=== PATIENT | female | born 1940 | race Caucasian/White ===

== ENCOUNTER → 2021-04-25 | Outpatient (CLI) | payer MEDICARE, OTHER ==
--- NOTE | 2021-04-27 11:01 | RAD ---
DATE: 04/25/2021 EXAM: MAMMO [place] SCREENING BILATERAL HISTORY: Screening COMPARISON: None. Baseline exam. This study was interpreted with the benefit of Computerized Aided Detection (CAD). Breast Density: SCATTERED The breast parenchyma shows scattered fibroglandular densities. Breast parenchyma level B. FINDINGS: No mass, suspicious calcification, or architectural distortion in either breast. IMPRESSION: No evidence of malignancy. BI-RADS CATEGORY: 1 NEGATIVE RECOMMENDED FOLLOW-UP: 12M 12 MONTH FOLLOW-UP PQRS compliance statement: Patient information was entered into a reminder system with a target due date for the next mammogram. Mammography is a sensitive method for finding small breast cancers, but it does not detect them all and is not a substitute for careful clinical examination. A negative mammogram does not negate a clinically suspicious finding and should not result in delay in biopsying a clinically suspicious abnormality. "Our facility is accredited by the [employer] Mammography Program."
== END ==
LOC: MAMMO 10:14
PROVIDERS: ATTEND Family Medicine
DX: Z12.31 Encounter for screening mammogram for malignant neoplasm of breast (principal)
CPT/HCPCS: 77063; 77067

== ENCOUNTER → 2021-05-16 | Outpatient (CLI) | payer MEDICARE, OTHER ==
--- NOTE | 2021-05-16 17:07 | RAD ---
EXAM: Frontal pelvis with bilateral two-view hip. HISTORY: Bilateral hip pain. COMPARISON: None. FINDINGS: Osteopenia is at least mild. No fractures are identified within the pelvis or either hip. T here is mild superior joint space narrowing at the right greater than left hips. There are moderate d egenerative changes of the lower lumbar spine. There are mild degenerative changes at the sacroiliac joints and pubic symphysis for patient age. A compression deformity is suspected at L5. IMPRESSION: 1. Mild hip osteoarthritis on the right greater than left. 2. Suspect an age-indeterminate compression deformity at L5. Electronically signed by: Emely Dickens MD (05/16/2021 5:05 PM) [id number]
== END ==
LOC: RAD 15:26
PROVIDERS: ATTEND Family Medicine
DX: M16.0 Bilateral primary osteoarthritis of hip (principal)
CPT/HCPCS: 73521

== ENCOUNTER → 2021-05-18 | Outpatient (CLI) | payer MEDICARE, OTHER ==
--- NOTE | 2021-05-18 16:25 | RAD ---
EXAM: XR LUMBAR SPINE 2-3V 05/18/2021 1:43 PM CLINICAL INDICATION: Wedge compression fracture of the lumbar spine COMPARISON: None TECHNIQUE: AP, lateral, and coned-down lateral views of the lumbar spine FINDINGS: For the purpose of this report, a numbering system with 5 nonrib-bearing lumbar vertebral bodies and partial lumbarization of S1 is used. There is an inferiorly compression fracture of L5 wit h 30 percent vertebral body height loss. No obvious retropulsion of cortex identified by radiograph. No other fracture. Alignment is normal. There is mild leftward curvature. There is mild diffuse disc space narrowing. Advanced lower lumbar facet arthrosis. IMPRESSION: 1. Mild L5 compression fracture with approximately 30 percent vertebral body height loss. 2. Transitional anatomy at the lumbosacral junction. 3. Degenerative disc disease and facet arthrosis. Electronically signed by: Barbara Richardson MD (05/18/2021 4:22 PM) [id number]
== END ==
LOC: RAD 13:39
PROVIDERS: ATTEND Family Medicine
DX: S32.050A Wedge compression fracture of fifth lumbar vertebra, initial encounter for closed fracture (principal); M51.37 Other intervertebral disc degeneration, lumbosacral region; M47.817 Spondylosis without myelopathy or radiculopathy, lumbosacral region; X58.XXXA Exposure to other specified factors, initial encounter; Y93.89 Activity, other specified; Y92.89 Other specified places as the place of occurrence of the external cause; Y99.8 Other external cause status
CPT/HCPCS: 72100

== ENCOUNTER 2021-06-19 21:46 | Emergency (ER) | payer MEDICARE, OTHER ==
[~2021-06-19] VITALS: Ht 157.5 cm; Wt 77.3 kg
[2021-06-19] MEDS ORDERED: MECLIZINE 12.5 MG TABLET. PO ONE (22:30)
[2021-06-19] MEDS ORDERED: IV NORMAL SALINE 1,000ML 1,000 ML IV ONE (22:30)
--- NOTE | 2021-06-19 22:34 | PHYS DOC ---
Past History Additional Past Medical Histor: OSTEOARTHRITIS Past Surgical History: No Surgical History General Adult EDM: Chief Complaint: HYPERTENSION HPI: HPI: 81-year-old female presents with episode of dizziness and elevated blood pressure. The patient does not normally have hypertension. She is not on any medications. She got up from a chair earlier this evening and had a feeling of room spinning dizziness. This episode was made worse by movement. It continued for about an hour. During this entire time, the patient felt dizzy. The dizziness has improved but she still feels a little lightheaded. Her blood pressure is still 160s. She denies chest pain or shortness of breath. She has had other episodes of intermittent dizziness lately, but they have been much shorter in duration. No history of vertigo diagnosis. Review of Systems: Review of Systems: Constitutional: Denies fever or chills Eyes: Denies change in visual acuity HENT: Denies nasal congestion or sore throat Respiratory: Denies cough or shortness of breath Cardiovascular: Denies chest pain or edema GI: Denies abdominal pain, nausea, vomiting, bloody stools or diarrhea : Denies dysuria Musculoskeletal: Denies back pain or joint pain Integument: Denies rash Neurologic: Dizziness. Denies headache, focal weakness or sensory changes Endocrine: Denies polyuria or polydipsia Lymphatic: Denies swollen glands Psychiatric: Denies depression or anxiety Allergies: Allergies: Allergies Coded Allergies Type Severity Reaction Last Updated Verified No Known Drug Allergies 06/19/21 No Physical Exam: PE: Constitutional: Well developed, well nourished, no acute distress, non-toxic appearance. [] HENT: Normocephalic, atraumatic, bilateral external ears normal, oropharynx moist, no oral exudates, nose normal. [] Eyes: PERRLA, EOMI, conjunctiva normal, no discharge. [] Neck: Normal range of motion, no tenderness, supple, no stridor. [] Cardiovascular: Heart rate regular rhythm, no murmur [] Lungs & Thorax: Bilateral breath sounds clear to auscultation [] Abdomen: Bowel sounds normal, soft, no tenderness, no masses, no pulsatile masses. [] Skin: Warm, dry, no erythema, no rash. [] Back: No tenderness, no CVA tenderness. [] Extremities: No tenderness, no cyanosis, no clubbing, ROM intact, no edema. [] Neurologic: Alert and oriented X 3, normal motor function, normal sensory function, no focal deficits noted. [] Psychologic: Affect normal, judgement normal, mood normal. [] Current Patient Data: Vital Signs: Vital Signs Date Time Temp Pulse Resp B/P (MAP) Pulse Ox O2 Delivery O2 Flow Rate FiO2 06/19/21 22:11 98.2 87 18 160/86 97 Room Air EKG: EKG: [] Radiology/Procedures: Radiology/Procedures: [] Heart Score: C/O Chest Pain: N/A Risk Factors: Risk Factors: DM, Current or recent (<one month) smoker, HTN, HLP, family history of CAD, obesity. Risk Scores: Score 0 - 3: 2.5% MACE over next 6 weeks - Discharge Home Score 4 - 6: 20.3% MACE over next 6 weeks - Admit for Clinical Observation Score 7 - 10: 72.7% MACE over next 6 weeks - Early Invasive Strategies Course & Med Decision Making: Course & Med Decision Making Pertinent Labs and Imaging studies reviewed. (See chart for details) The patient's EKG is unremarkable. Her labs are unremarkable. Her troponin is negative. I gave her meclizine and this has improved her symptoms. Her blood pressure has improved as well. I have advised that she consider getting a prescription for this medication from her primary care physician. She is stable for discharge at this time. [] Dragon Disclaimer: Dragon Disclaimer: This electronic medical record was generated, in whole or in part, using a voice recognition dictation system. Departure Departure: Impression: Primary Impression: Benign positional vertigo Qualified Codes: H81.10 - Benign paroxysmal vertigo, unspecified ear Additional Impression: Hypertension Qualified Codes: I15.8 - Other secondary hypertension Disposition: HOME / SELF CARE / HOMELESS Condition: IMPROVED Referrals: ANA LAWRENCE MD (PCP) Patient Instructions: Benign Positional Vertigo KIRAN VYAS DO Jun 19, 2021 22:34
--- NOTE | 2021-06-19 23:13 | RAD ---
EXAMINATION: Chest radiograph. VIEWS: Single view COMPARISON: None INDICATION:81 years, Female, hypertension. FINDINGS: Normal cardiomediastinal silhouette. No focal consolidation. No pleural effusion or pneumothorax. No acute osseous process. IMPRESSION: No acute cardiopulmonary process. Electronically signed by: Pedro Urias MD (06/19/2021 11:11 PM) [facility]
[2021-06-19 23:18] LABS: BASO # 0.1 x10^3/uL (0.0-0.2); BASO % 1 % (0-3); EOS # 0.1 x10^3/uL (0.0-0.7); EOS % 1 % (0-3); HEMATOCRIT 42.9 % (36.0-47.0); HEMOGLOBIN 14.2 g/dL (12.0-15.5); LYMPH # 1.1 x10^3/uL (1.0-4.8); LYMPH % 12 % (24-48); MEAN CORPUSCULAR HEMOGLOBIN 30 pg (25-35); MEAN CORPUSCULAR HGB CONC 33 g/dL (31-37); MEAN CORPUSCULAR VOLUME 92 fL (79-100); MONO # 0.5 x10^3/uL (0.0-1.1); MONO % 6 % (0-9); NEUT # 6.9 x10^3uL (1.8-7.7); NEUT % 80 % (31-73); PLATELET COUNT 145 x10^3/uL (140-400); RED BLOOD COUNT 4.69 x10^6/uL (3.50-5.40); RED CELL DISTRIBUTION WIDTH 13.1 % (11.5-14.5); WHITE BLOOD COUNT 8.6 x10^3/uL (4.0-11.0)
--- NOTE | 2021-06-19 23:21 | EKG ---
[address] [address] Test Date: 2021-06-19 Test Time: 22:23:37 Pat Name: ANN PACE Department: Room: Gender: F [employer]: : 1940 Requested By: KIRAN VYAS Order Number: [id number] Reading MD: Measurements Intervals [place] Rate: 77 P: 48 NE: 168 QRS: 38 QRSD: 108 T: 36 QT: 392 QTc: 445 Interpretive Statements SINUS RHYTHM INCOMPLETE RIGHT BUNDLE BRANCH BLOCK QRS(T) CONTOUR ABNORMALITY CONSISTENT WITH INFERIOR INFARCT PROBABLY OLD ABNORMAL ECG RI6.02 No previous ECG available for comparison
[2021-06-19 23:25] LABS: CLARITY,URINE CLEAR; COLOR,URINE YELLOW
[2021-06-19 23:26] LABS: BACTERIA,URINE 0 /HPF (0-FEW); BILIRUBIN,URINE NEG (NEG); GLUCOSE,URINE NEG (NEG); NITRITE,URINE NEG (NEG); RBC,URINE 0 /HPF (0-2); SQUAMOUS EPITHELIAL CELL,UR FEW /LPF; UROBILINOGEN,URINE 0.2 mg/dL (0.2 mg/dL); WBC,URINE OCC /HPF (0-4)
[2021-06-19 23:31] LABS: CALCIUM 9.1 mg/dL (8.5-10.1); CREATININE 0.7 mg/dL (0.6-1.0); GFR 80.7; POTASSIUM 4.2 mmol/L (3.5-5.1)
[2021-06-19 23:33] VITALS: BP 135/72
[2021-06-19 23:44] LABS: ALBUMIN 3.7 g/dL (3.4-5.0); ALBUMIN/GLOBULIN RATIO 1.4 (1.0-1.7); TOTAL BILIRUBIN 0.4 mg/dL (0.2-1.0); TOTAL PROTEIN 6.4 g/dL (6.4-8.2)
== END 2021-06-20 00:34 | disposition home or self-care (01) ==
LOC: ER 21:46
DX: I15.8 Other secondary hypertension (principal); H81.10 Benign paroxysmal vertigo, unspecified ear; M19.90 Unspecified osteoarthritis, unspecified site
CPT/HCPCS: 36415; 71045; 80053; 81001; 84484; 85025; 87086; 93005; 96360; 99285; J7030